=== PATIENT | female | born 1985 | race Caucasian/White ===

== ENCOUNTER 2021-07-30 11:59 | Emergency (ER) | payer OTHER ==
[~2021-07-30] VITALS: Ht 157.5 cm; Wt 85.1 kg
[2021-07-30] MEDS ORDERED: Vitamin D PO (14:57)
[2021-07-30] MEDS ORDERED: CETI10CA2 PO (14:57)
[2021-07-30 15:00] LABS: BASO % 0.8 % (0.0-1.0); EOS # 0.1 10^3/uL (0.0-0.5); EOS % 1.1 % (0.0-3.0); HEMATOCRIT 42.5 % (36.0-47.0); HEMOGLOBIN 14.1 g/dl (12.0-15.5); LYMPH # 1.3 10^3/uL (1.5-5.0); LYMPH % 24.6 % (24.0-44.0); MEAN CORPUSCULAR HEMOGLOBIN 30.5 pg (27.0-33.0); MEAN CORPUSCULAR HGB CONC 33.2 g/dl (32.0-36.5); MONO # 0.3 10^3/uL (0.0-0.8); MONO % 6.3 % (2.0-8.0); NEUTROPHILS # 3.5 10^3/uL (1.5-8.5); PLATELET COUNT, AUTOMATED 226 10^3/uL (150-450); RED BLOOD COUNT 4.62 10^6/uL (4.00-5.40); WHITE BLOOD COUNT 5.3 10^3/uL (4.0-10.0)
[2021-07-30] MEDS ORDERED: LEVO30TA PO (15:06)
[2021-07-30 15:38] LABS: ERYTHROCYTE SEDIMENTATION RATE 8 mm/hr (0-20)
[2021-07-30 15:48] LABS: ALBUMIN 4.2 GM/DL (3.2-5.2); ALT/SGPT 22 U/L (12-78); BILIRUBIN,DIRECT 0.1 MG/DL (0.0-0.2); BILIRUBIN,TOTAL 0.5 MG/DL (0.2-1.0); BLOOD UREA NITROGEN 12 MG/DL (7-18); CALCIUM LEVEL 8.9 MG/DL (8.5-10.1); CARBON DIOXIDE LEVEL 28 MEQ/L (21-32); CHLORIDE LEVEL 108 MEQ/L (98-107); COMPLEMENT C4 24 MG/DL (10-40); CREATININE FOR GFR 0.68 MG/DL (0.55-1.30); GLOMERULAR FILTRATION RATE > 60.0 (>60); GLUCOSE, FASTING 87 MG/DL (70-100); LIPASE 128 U/L (73-393); SODIUM LEVEL 141 MEQ/L (136-145); TOTAL PROTEIN 7.1 GM/DL (6.4-8.2)
[2021-07-30] MEDS ORDERED: ONDA4TAB6 PO (16:16)
[2021-07-30] MEDS ORDERED: PEPC1TAB5 PO (16:16)
[2021-07-30 16:25] VITALS: BP 121/78
[2021-08-03 16:08] LABS: C1 ESTER INHIB. NON FUNCTIONAL 31 mg/dL (21-39); C1 ESTERASE INHIB. FUNCTIONAL > 91 (.); COAGULATION FACTOR XII ACTIVIT 112 % (50-150)
== END 2021-07-30 16:27 | disposition home or self-care (01) ==
LOC: M ED 11:59
DX: L50.9 Urticaria, unspecified (principal); K29.70 Gastritis, unspecified, without bleeding; R10.13 Epigastric pain; E03.9 Hypothyroidism, unspecified; Z79.899 Other long term (current) drug therapy; Z79.890 Hormone replacement therapy

== ENCOUNTER → 2021-09-01 | Outpatient (REF) | payer OTHER ==
[~2021-09-01] MED LIST: CETI10CA2 PO; LEVO30TA PO; ONDA4TAB6 PO; PEPC1TAB5 PO; Vitamin D PO
[2021-09-01 17:23] LABS: IMMUNOGLOBULIN A 84.8 MG/DL (70-400); RHEUMATOID FACTOR QUANT < 10.0 IU/ML (<15.0)
[2021-09-04 13:12] LABS: CYCLIC CITRULLINATED PEPTIDE 4 units (0-19); ENDOMYSIAL ABY IgA Negative (Negative); TISSUE TRANSGLUTAMINASE IgA <2 U/mL (0-3)
== END ==
LOC: M LAB REF 16:21
PROVIDERS: ATTEND Internal Medicine
DX: M13.80 Other specified arthritis, unspecified site (principal); R10.9 Unspecified abdominal pain

== ENCOUNTER → 2021-10-05 | Outpatient (CLI) | payer OTHER ==
[2021-10-05 12:51] LABS: BASO % 0.5 % (0.0-1.0); EOS % 0.5 % (0.0-3.0); HEMATOCRIT 41.6 % (36.0-47.0); HEMOGLOBIN 13.8 g/dl (12.0-15.5); LYMPH # 1.5 10^3/uL (1.5-5.0); LYMPH % 23.8 % (24.0-44.0); MEAN CORPUSCULAR HEMOGLOBIN 29.9 pg (27.0-33.0); MEAN CORPUSCULAR HGB CONC 33.2 g/dl (32.0-36.5); MEAN CORPUSCULAR VOLUME 90.2 fl (80.0-96.0); MONO # 0.4 10^3/uL (0.0-0.8); MONO % 5.6 % (2.0-8.0); NEUTROPHILS # 4.4 10^3/uL (1.5-8.5); NEUTROPHILS % 69.4 % (36.0-66.0); PLATELET COUNT, AUTOMATED 207 10^3/uL (150-450); RED BLOOD COUNT 4.61 10^6/uL (4.00-5.40); WHITE BLOOD COUNT 6.4 10^3/uL (4.0-10.0)
[2021-10-05 13:19] LABS: ALBUMIN 3.8 GM/DL (3.2-5.2); ALT/SGPT 17 U/L (12-78); BILIRUBIN,TOTAL 0.6 MG/DL (0.2-1.0); BLOOD UREA NITROGEN 12 MG/DL (7-18); CARBON DIOXIDE LEVEL 29 MEQ/L (21-32); CHLORIDE LEVEL 107 MEQ/L (98-107); CREATININE FOR GFR 0.64 MG/DL (0.55-1.30); ERYTHROCYTE SEDIMENTATION RATE 10 mm/hr (0-20); GLOMERULAR FILTRATION RATE > 60.0 (>60); GLUCOSE, FASTING 83 MG/DL (70-100); IMMUNOGLOBULIN E 19.8 IU/ML (<100); IMMUNOGLOBULIN G 820 MG/DL (681-1648); POTASSIUM SERUM 3.9 MEQ/L (3.5-5.1); RHEUMATOID FACTOR QUANT < 10.0 IU/ML (<15.0); SODIUM LEVEL 141 MEQ/L (136-145)
[2021-10-05 13:26] LABS: THYROID PEROXIDASE ANTIBODY 249.2 U/ML (<60.0)
== END ==
LOC: M LAB 12:15
PROVIDERS: ATTEND Allergy & Immunology Allergy
DX: L50.1 Idiopathic urticaria (principal)

== ENCOUNTER → 2021-12-23 | Outpatient (REF) | payer OTHER | LOC: M LAB REF 14:28 | PROVIDERS: ATTEND Physician Assistant | DX: R05.9 Cough, unspecified (principal); R53.83 Other fatigue; J02.9 Acute pharyngitis, unspecified ==

== ENCOUNTER 2024-05-24 10:45 | Outpatient (CLI) | payer OTHER ==
[~2024-05-24] VITALS: Ht 157.5 cm; Wt 96.2 kg
[~2024-05-24 10:45] MED LIST changes: +ALBUTEROL SULFATE 2.5MG/0.5ML INH NEB SOLN INH PRN; +EPINEPHrine INJ 1 MG/ML 1ML AMP IM PRN; +NS 1,000 ML IV SCH; +ONDA-282 PO; -ONDA4TAB6 PO; +diphenhydrAMINE 50MG/ML VIAL IV PRN; +methylPREDNISolone 125MG 2ML VIAL IV PRN
[2024-05-24 10:50] VITALS: BP 134/82; O2SAT 99
[2024-05-24] MEDS ORDERED: ACETAMINOPHEN TAB 650MG DOSE (2X325MG) PO ONE (11:05)
[2024-05-24] MEDS: IRON SUCROSE 200 MG in NS 100 ML IV ONE (11:33)
[2024-05-24 12:41] VITALS: BP 134/82; O2SAT 99
== END 2024-05-24 13:00 ==
LOC: M INFU 10:45
PROVIDERS: ATTEND Family Medicine
DX: D64.9 Anemia, unspecified (principal)
CPT/HCPCS: 96365; J1756